=== PATIENT | male | born 1975 | race African-American/Black ===

== ENCOUNTER 2018-04-08 11:48 | Emergency (ER) | payer OTHER ==
[~2018-04-08] VITALS: Ht 180.3 cm; Wt 103.4 kg
[2018-04-08 11:54] VITALS: TEMP 98.2
[2018-04-08 12:38] LABS: PLATELET COUNT 253 K/uL (142-355)
[2018-04-08 12:46] LABS: POTASSIUM 4.2 mmol/L (3.6-5.2); SODIUM 141 mmol/L (136-145)
[2018-04-08 15:30] VITALS: BP 127/85
== END 2018-04-08 15:35 | disposition home or self-care (01) ==
LOC: ED 11:48
PROVIDERS: Emergency Medicine
DX: R07.89 Other chest pain (principal); K21.9 Gastro-esophageal reflux disease without esophagitis
CPT/HCPCS: 36415; 80053; 82550; 82553; 84484; 85027; 93005; 99283